=== PATIENT | female | born 1995 | race Caucasian/White ===

== ENCOUNTER 2017-06-28 10:27 | Emergency (ER) | payer OTHER ==
[2017-06-28 10:33] VITALS: BP 117/75; PULSE 90; TEMP 99; BMI 24.9
[2017-06-28] MEDS ORDERED: SODIUM CHLORIDE 0.9% 1000 ML INFUS.BAG IV ONE (10:55)
--- NOTE | 2017-06-28 11:05 | PDOC ---
History of Present Illness - General History Source: Patient Exam Limitations: No Limitations - History of Present Illness Initial Comments: 06/28/17 11:07 The patient is a 22 year old female, A0 who is currently 11 weeks with no significant past medical history who presents to the emergency department with dysfunctional vaginal bleeding and abdominal cramping. The patient reports having heavy bleeding starting today with associated lower abdominal cramping LMP 04/10/17. She denies recent fevers, chills, headache or dizziness. She denies recent nausea, vomit, diarrhea or constipation. She denies recent dysuria, frequency, urgency or hematuria. She denies recent chest pain or shortness of breath. Allergies: NKA Past surgical history: None reported. Social history: Nonsmoker. Denies EtOH use and recreational drug use. OBGYN: Dr. Vandana Gusman (Not on Staff) <Nathaniel Calixto - Last Filed: 06/28/17 11:07> - General History Source: Patient Exam Limitations: No Limitations <Zaina Reyes - Last Filed: 06/28/17 14:06> <Reny Perales - Last Filed: 06/28/17 14:37> - General Chief Complaint: Vaginal Bleeding Stated Complaint: BLEEDING (11 WKS ) Time Seen by Provider: 06/28/17 10:48 Past History <Nathaniel Calixto - Last Filed: 06/28/17 11:07> - Immunization History Immunization Up to Date: No - Psycho/Social/Smoking Cessation Hx Anxiety: No Suicidal Ideation: No Smoking Status: No Smoking History: Never smoked Have you smoked in the past 12 months: No Number of Cigarettes Smoked Daily: 0 Information on smoking cessation initiated: No Hx Alcohol Use: No Substance Use Type: None <Zaina Reyes - Last Filed: 06/28/17 14:06> <Reny Perales - Last Filed: 06/28/17 14:37> - Past Medical History Allergies/Adverse Reactions: Allergies Allergy/AdvReac Type Severity Reaction Status Date / Time No Known Allergies Allergy Verified 06/28/17 10:33 Home Medications: Ambulatory Orders Vits #93/Iron Fum/FA [ Formula Tablet] 1 each PO DAILY Review of Systems - Review of Systems Able to Perform ROS?: Yes Comments:: 06/28/17 11:07 GENERAL/CONSTITUTIONAL: No fever or chills. No weakness. HEAD, EYES, EARS, NOSE AND THROAT: No change in vision. No ear pain or discharge. No sore throat. CARDIOVASCULAR: No chest pain or shortness of breath. RESPIRATORY: No cough, wheezing, or hemoptysis. GASTROINTESTINAL: +abdominal cramping. No nausea, vomiting, diarrhea or constipation. GENITOURINARY: +dysfunctional vaginal bleeding. No dysuria, frequency, or change in urination. MUSCULOSKELETAL: No joint or muscle swelling or pain. No neck or back pain. SKIN: No rash NEUROLOGIC: No headache, vertigo, loss of consciousness, or change in strength/ sensation. ENDOCRINE: No increased thirst. No abnormal weight change. HEMATOLOGIC/LYMPHATIC: No anemia, easy bleeding, or history of blood clots. ALLERGIC/IMMUNOLOGIC: No hives or skin allergy. <Nathaniel Calixto - Last Filed: 06/28/17 11:07> *Physical Exam - Vital Signs Last Vital Signs Temp Pulse Resp BP Pulse Ox 99 F 90 18 117/75 100 06/28/17 10:30 06/28/17 10:30 06/28/17 10:30 06/28/17 10:30 06/28/17 10:30 <Nathaniel Calixto - Last Filed: 06/28/17 11:07> - Vital Signs Last Vital Signs Temp Pulse Resp BP Pulse Ox 99 F 90 18 117/75 100 06/28/17 10:30 06/28/17 10:30 06/28/17 10:30 06/28/17 10:30 06/28/17 10:30 <Zaina Reyes - Last Filed: 06/28/17 14:06> - Vital Signs Last Vital Signs Temp Pulse Resp BP Pulse Ox 99 F 90 18 117/75 100 06/28/17 10:30 06/28/17 10:30 06/28/17 10:30 06/28/17 10:30 06/28/17 10:30 - Physical Exam Comments: 06/28/17 12:16 PELVIC: External exam is normal. Small amount of bleeding from the cervical os. +Left adnexal tenderness. <Reny Perales - Last Filed: 06/28/17 14:37> ED Treatment Course - LABORATORY CBC & Chemistry Diagram: 06/28/17 11:25 06/28/17 11:25 - RADIOLOGY Radiology Studies Ordered: Category Date Time Status TRANSVAGINAL US PREG [US] Stat Ultrasound 06/28/17 10:54 Ordered <EricZaina - Last Filed: 06/28/17 14:06> - LABORATORY CBC & Chemistry Diagram: 06/28/17 11:25 06/28/17 11:25 - ADDITIONAL ORDERS Additional order review: Laboratory Results 06/28/17 06/28/17 11:45 10:55 Blood Type A POSITIVE A POSITIVE 06/28/17 11:25 RBC 5.07 MCV 68.2 L MCHC 31.9 L RDW 14.3 MPV 8.4 Neutrophils % 70.0 Lymphocytes % 23.4 D Monocytes % 5.9 Eosinophils % 0.2 D Basophils % 0.5 - RADIOLOGY Radiograph Interpretation: 06/28/17 14:33 Gestational US, read by Dr. Marcus Single intrauterine with estimated gestational age of 8 weeks 4 days. A small subchorionic hemorrhage is present. No heart activity was visualized or could be documented compatible with demise. Correlation with serial quantitative serum beta hCG and close follow up ultrasound are recommended. Both ovaries appear morphologically unremarkable. Duplex evaluation of the ovaries are not obtained. - Medications Given in the ED: ED Medications Discontinued Medications Generic Name Dose Route Start Last Admin Trade Name Freq PRN Reason Stop Dose Admin Sodium Chloride 1,000 ml 06/28/17 10:55 06/28/17 11:32 Normal Saline - IV 06/28/17 10:56 1,000 ml ONCE ONE Administration <Reny Perales - Last Filed: 06/28/17 14:37> Medical Decision Making - Medical Decision Making 06/28/17 11:03 22 yo F at 11 weeks LMp 04/10 with vaginal bleeding started 4 days ago. was. heavy bleeding bright red blood. with clots similar to period. crampy abd pain. no /ho ectopic or misscarriage. now slowing down. has had ob appt, but no us as of yet. on exam pt awake alert lungs cardiac normal. abd soft mild suprapubic ttp. no rebound no gurading differential threatened vs. missed or incomplete abl. plan labs us. iv hydration. 06/28/17 11:50 onpelvic, pt with scant blood in vaginal vault. some active blood coming from os. no CMT. left adnexal tenderness. no adnexal masses. <Zaina Reyes - Last Filed: 06/28/17 14:06> - Medical Decision Making 06/28/17 13:08 Call placed to patient's OBGYN, Dr. Sommer Gusman at [phone]. Awaiting callback. <Reny Perales - Last Filed: 06/28/17 14:37> *DC/Admit/Observation/Transfer - Attestations Scribe Attestion: 06/28/17 11:07 Documentation prepared by Nathaniel Calixto, acting as medical clerk for Zaina Reyes MD. <Nathaniel Calixto - Last Filed: 06/28/17 11:07> - Discharge Dispostion Admit: No <Zaina Reyes - Last Filed: 06/28/17 14:06> - Attestations Scribe Attestion: 06/28/17 12:17 Documentation prepared by Reny Perales, acting as medical clerk for Zaina Reyes MD. <Reny Perales - Last Filed: 06/28/17 14:37> Diagnosis at time of Disposition: Missed with demise before 20 completed weeks of gestation - Patient Instructions Additional Instructions: follow up with DR Gusman tomorrow at 8:45 am . return for severe pain, fever or any concerns. you can take tylenol 500 mg every 6 hours as needed for pain.
[2017-06-28 11:39] LABS: BASOPHIL 0.5 % (0-2.0); EOSINOPHIL 0.2 % (0-4.5); MCH 21.7 pg (25.7-33.7); MCHC 31.9 g/dl (32.0-36.0); MEAN CELL VOLUME 68.2 fl (80-96); MEAN PLT VOLUME 8.4 fl (7.5-11.1); PLATELET COUNT 218 K/MM3 (134-434); RDW 14.3 % (11.6-15.6); WHITE BLOOD COUNT 7.3 K/mm3 (4.0-10.0)
[2017-06-28 12:10] LABS: ALBUMIN 3.9 g/dl (3.4-5.0); ANION GAP 9 (8-16); BILIRUBIN,TOTAL 0.2 mg/dL (0.2-1.0); CALCIUM 9.2 mg/dL (8.5-10.1); CO2 25 mmol/L (21-32); CREATININE 0.4 mg/dL (0.55-1.02); GLUCOSE,RANDOM 78 mg/dL (74-106); SGOT/AST 17 U/L (15-37); SGPT/ALT 23 U/L (12-78); TOT PROT 7.1 g/dl (6.4-8.2)
[2017-06-28 12:25] LABS: ALK PHOS 50 U/L (45-117)
[2017-06-28 13:17] LABS: HYPOCHROMIA 1+; PLATELET COMMENT2 NO CLOTTING DETECTED; PLATELET ESTIMATE ADEQUATE (NORMAL); POLYCHROMASIA 1+
[2017-06-28 13:18] LABS: ANISOCYTOSIS 1+; MICROCYTOSIS 1+
== END 2017-06-28 15:20 | disposition home or self-care (01) ==
LOC: JER 10:27
DX: O02.1 Missed abortion (principal); Z3A.11 11 weeks gestation of pregnancy
CPT/HCPCS: 36415; 76801-TC; 80053; 84702; 85025; 86850; 86900; 86901; 99284-25

== ENCOUNTER 2017-06-29 03:47 | Emergency (ER) | payer OTHER | END 2017-06-29 04:07 | disposition left against medical advice (07) | LOC: JER 03:47 | DX: Z53.21 Procedure and treatment not carried out due to patient leaving prior to being seen by health care provider (principal) | CPT/HCPCS: 99281-25 ==

== ENCOUNTER 2017-10-19 23:25 | Emergency (ER) | payer OTHER ==
[2017-10-19 23:51] VITALS: BP 110/76; PULSE 114; TEMP 100.9; BMI 24.3
--- NOTE | 2017-10-20 00:04 | PDOC ---
History of Present Illness - General Chief Complaint: Cold Symptoms Stated Complaint: FEVER Time Seen by Provider: 10/19/17 23:50 History Source: Patient Exam Limitations: No Limitations - History of Present Illness Initial Comments: 10/20/17 00:08 22-year-old female with no medical history presents to the emergency department complaining of a sore throat, subjective fever, body aches since this afternoon without chills, nausea/vomiting, headache, dizziness, lightheadedness, facial pains, nasal congestion, rhinorrhea, neck pain/stiffness, back pains, chest pain , shortness of breath, abdominal pains, flank pains, urinary symptoms. LMP: x1 week ago. Timing/Duration: reports: this afternoon Past History - Past Medical History Allergies/Adverse Reactions: Allergies Allergy/AdvReac Type Severity Reaction Status Date / Time No Known Allergies Allergy Verified 10/19/17 23:51 Home Medications: Ambulatory Orders Vit 93/Iron Fum/Folic [ Formula Tablet] 1 each PO DAILY - Reproductive History (#): 1 Para: 0 - Immunization History Immunization Up to Date: No - Suicide/Smoking/Psychosocial Hx Smoking Status: No Smoking History: Never smoked Have you smoked in the past 12 months: No Number of Cigarettes Smoked Daily: 0 Information on smoking cessation initiated: No Hx Alcohol Use: No Drug/Substance Use Hx: No Substance Use Type: None Review of Systems - Review of Systems Able to Perform ROS?: Yes Comments:: 10/20/17 00:10 CONSTITUTIONAL: +subjective fever, malaise Absent: chills, diaphoresis, generalized weakness, loss of appetite HEENT: +throat pain Absent: rhinorrhea, nasal congestion, throat swelling, difficulty swallowing, mouth swelling, ear pain, eye pain, visual Changes CARDIOVASCULAR: Absent: chest pain, loss of consciousness, palpitations, irregular heart rate, peripheral edema RESPIRATORY: Absent: cough, shortness of breath, dyspnea with exertion, orthopnea, wheezing, stridor, hemoptysis GASTROINTESTINAL: Absent: abdominal pain, abdominal distension, nausea, vomiting, diarrhea, constipation, melena, hematochezia GENITOURINARY: Absent: dysuria, frequency, urgency, hesitancy, hematuria, flank pain, genital pain MUSCULOSKELETAL: Absent: myalgia, arthralgia, joint swelling SKIN: Absent: rash, itching, pallor HEMATOLOGIC/IMMUNOLOGIC: Absent: easy bleeding, easy bruising, lymphadenopathy, frequent infections Is the patient limited [place]an proficient: No *Physical Exam - Vital Signs Last Vital Signs Temp Pulse Resp BP Pulse Ox 100.9 F H 114 H 20 110/76 99 10/19/17 23:50 10/19/17 23:50 10/19/17 23:50 10/19/17 23:50 10/19/17 23:50 - Physical Exam Comments: 10/20/17 00:10 GENERAL: Well developed, well nourished. Awake and alert. No acute distress. HEENT: Normocephalic, atraumatic. PERRLA, EOMI. No conjunctival pallor. Sclera are non- icteric. Moist mucous membranes. Oropharynx is clear. NECK: Supple. Full ROM. No JVD. Carotid pulses 2+ and symmetric, without bruits. No thyromegaly. No lymphadenopathy. CARDIOVASCULAR: Regular rate and rhythm. No murmurs, rubs, or gallops. Distal pulses are 2+ and symmetric. PULMONARY: No evidence of respiratory distress. Lungs clear to auscultation bilaterally. No wheezing, rales or rhonchi. ABDOMINAL: Soft. Non-tender. Non-distended. No rebound or guarding. No organomegaly. Normoactive bowel sounds. MUSCULOSKELETAL Normal range of motion at all joints. No bony deformities or tenderness. No CVA tenderness. EXTREMITIES: No cyanosis. No clubbing. No edema. No calf tenderness. SKIN: Warm and dry. Normal capillary refill. No rashes. No jaundice. *DC/Admit/Observation/Transfer Diagnosis at time of Disposition: Strep sore throat - Discharge Dispostion Disposition: HOME Condition at time of disposition: Stable Admit: No - Referrals Referrals: Celio Mckeon MD [Staff Physician] - - Patient Instructions Printed Discharge Instructions: DI for Strep Throat Additional Instructions: Rinse with salt water Tylenol alternating with Motrin as needed for pain/fever Follow up with your physician or the ENT listed on your discharge/Dr. Mckeon Return to the ER severe/persistent/worsening symptoms - Post Discharge Activity
--- NOTE | 2017-10-20 01:00 | PDOC ---
*Physical Exam - Vital Signs Last Vital Signs Temp Pulse Resp BP Pulse Ox 100.9 F H 114 H 20 110/76 99 10/19/17 23:50 10/19/17 23:50 10/19/17 23:50 10/19/17 23:50 10/19/17 23:50 ED Treatment Course - ADDITIONAL ORDERS Additional order review: 10/20/17 00:04 Influenza Types A,B Antigen (AFTAB) - Final Nasopharyngeal Swab - Final 10/20/17 00:04 Group A Strep Rapid Antigen - Final Throat Medical Decision Making - Medical Decision Making 10/20/17 00:59 agree with care from QAMAR Bates
[2017-10-20] MEDS ORDERED: AMOXICILLIN 500 MG CAPSULE (FP) PO ONE (01:03)
[2017-10-20] MEDS ORDERED: AMOXICILLIN 500 MG CAPSULE (FP) ONE (01:14)
--- NOTE | 2017-10-20 09:38 | PDOC ---
Patient Follow-up (Call Back) - Post ED Follow - Up Condition at time of discharge: Unchanged/Unknown Disposition at time of original discharge: HOME Reason for Call Back: Abnwl. Lab - Disposition Rx Needed: Yes Additional Instructions/Notes: Pt with + strep culture from last night. No antibiotics prescribed at that time. Will sent zpack now. Attempted to contact pt however went to voicemail and message left to call back.
== END 2017-10-20 02:05 | disposition home or self-care (01) ==
LOC: JER 23:25
DX: J02.0 Streptococcal pharyngitis (principal); B95.0 Streptococcus, group A, as the cause of diseases classified elsewhere
CPT/HCPCS: 87070; 87077; 87430; 87804; 99282-25

== ENCOUNTER 2019-07-13 20:26 | Emergency (ER) | payer OTHER ==
[2019-07-13 20:32] VITALS: BP 142/82; PULSE 93; BMI 29.5
[2019-07-13 22:14] VITALS: TEMP 98.3
[2019-07-13] MEDS ORDERED: ACETAMINOPHEN 500 MG TABLET (FP) PO ONE (22:20)
[2019-07-13] MEDS ORDERED: ACETAMINOPHEN 325 MG TABLET (FP) ONE (22:27)
--- NOTE | 2019-07-13 22:36 | PDOC ---
History of Present Illness - General Chief Complaint: Cold Symptoms Stated Complaint: COLD SYX/38 WEEKS Time Seen by Provider: 07/13/19 22:03 History Source: Patient Exam Limitations: No Limitations - History of Present Illness Initial Comments: 07/13/19 22:30 Patient is a 24 year old female who is 38 weeks c/o MEHTA, dizziness vertigo, nasal congestion, cough and intermittent fevers 4 days. States her pain is mostly on the left temporal now 8/10, throbbing associated with intermittent vertigo symptoms. No prior episode. States she feels the baby kicking. Denies vaginal bleeding or leakage of fluid. PMD: Woman to Woman PMHX: as above PSOCHX: neg etoh, drug, cig ALL: NKDA GENERAL/CONSTITUTIONAL: No fever or chills. No weakness. No weight change. HEAD, EYES, EARS, NOSE AND THROAT: No change in vision. No ear pain or discharge. No sore throat. CARDIOVASCULAR: No chest pain or shortness of breath. RESPIRATORY: (+) cough, (-)wheezing, or hemoptysis. GASTROINTESTINAL: No nausea, vomiting, diarrhea or constipation. No rectal bleeding. GENITOURINARY: No dysuria, frequency, or change in urination. MUSCULOSKELETAL: No joint or muscle swelling or pain. No neck or back pain. SKIN AND BREASTS: No rash or easy bruising. NEUROLOGIC: (+) headache, vertigo, (-) loss of consciousness, or loss of sensation. PSYCHIATRIC: No depression or anxiety. ENDOCRINE: No increased thirst. No abnormal weight change. HEMATOLOGIC/LYMPHATIC: No anemia, easy bleeding, or history of blood clots. ALLERGIC/IMMUNOLOGIC: No hives or skin allergy. No latex allergy. GENERAL: The patient is awake, alert, and fully oriented, in no acute distress. HEAD: Normal with no signs of trauma. EYES: Pupils equal, round and reactive to light, extraocular movements intact, sclera anicteric, conjunctiva clear. ENT: Ears normal, nares patent, oropharynx clear without exudates. Moist mucous membranes, (+) tenderness over the frontal and maxillary sinus. NECK: Normal range of motion, supple without lymphadenopathy, JVD, or masses. LUNGS: Breath sounds equal, clear to auscultation bilaterally. No wheezes, and no crackles. HEART: Regular rate and rhythm, normal S1 and S2 without murmur, rub. ABDOMEN: Soft, gravid, nontender, normoactive bowel sounds. No guarding, no rebound. No masses. EXTREMITIES: Normal range of motion, no edema. No clubbing or cyanosis. No cords, erythema, or tenderness. NEUROLOGICAL: Cranial nerves II through XII grossly intact. Normal speech, normal gait, nystagmus PSYCH: Normal mood, normal affect. SKIN: Warm, Dry, normal turgor, no rashes or lesions noted. Past History - Past Medical History Allergies/Adverse Reactions: Allergies Allergy/AdvReac Type Severity Reaction Status Date / Time No Known Allergies Allergy Verified 07/13/19 20:29 Home Medications: Ambulatory Orders Azithromycin [Zithromax -] 250 mg PO UTDICT #6 tab 10/20/17 Acetaminophen [Tylenol] 650 mg PO Q4HWA #130 tablet 07/13/19 Fluticasone Prop 0.05% Nasal [Flonase -] 1 - 2 spray NS BID #1 spray.pump Loratadine [Claritin] 10 mg PO DAILY #15 tablet 07/13/19 COPD: No - Reproductive History (#): 1 Para: 0 - Immunization History Immunization Up to Date: No - Suicide/Smoking/Psychosocial Hx Smoking Status: No Smoking History: Never smoked Have you smoked in the past 12 months: No Number of Cigarettes Smoked Daily: 0 Hx Alcohol Use: No Drug/Substance Use Hx: No Substance Use Type: None *Physical Exam - Vital Signs Last Vital Signs Temp Pulse Resp BP Pulse Ox 98.3 F 93 H 18 142/82 98 07/13/19 22:13 07/13/19 20:30 07/13/19 20:30 07/13/19 20:30 07/13/19 20:30 ED Treatment Course - Medications Given in the ED: ED Medications Discontinued Medications Generic Name Dose Route Start Last Admin Trade Name Freq PRN Reason Stop Dose Admin Acetaminophen 975 mg 07/13/19 22:20 07/13/19 22:29 Tylenol - PO 07/13/19 22:21 975 mg ONCE ONE Administration Medical Decision Making - Medical Decision Making 07/13/19 22:30 Patient is a 24 year old female who is 38 weeks c/o MEHTA, dizziness vertigo, nasal congestion, cough and intermittent fevers 4 days. States her pain is mostly on the left temporal now 8/10, throbbing associated with intermittent vertigo symptoms. No prior episode. States she feels the baby kicking. Denies vaginal bleeding or leakage of fluid. Symptoms consistent with sinusitis/sinus headache will treat symptomatically with nasal spray Tylenol and Claritin. No indication for antibiotics at this time. Temperature repeated in the ER patient remains afebrile. I discussed the physical exam findings, ancillary test results and final diagnoses with the patient. I answered all of the patient's questions. The patient was satisfied with the care received and felt comfortable with the discharge plan and treatment plan. The Patient agrees to follow up with the primary care physician within 24-72 hours. *DC/Admit/Observation/Transfer Diagnosis at time of Disposition: Sinusitis Qualifiers: Sinusitis location: unspecified location Chronicity: acute Recurrence: not specified as recurrent Qualified Code(s): J01.90 - Acute sinusitis, unspecified - Discharge Dispostion Disposition: HOME Condition at time of disposition: Stable - Prescriptions Prescriptions: Acetaminophen [Tylenol] 650 mg PO Q4HWA #130 tablet Fluticasone Prop 0.05% Nasal [Flonase -] 1 - 2 spray NS BID #1 spray.pump Loratadine [Claritin] 10 mg PO DAILY #15 tablet - Referrals - Patient Instructions Printed Discharge Instructions: DI for Sinusitis - Post Discharge Activity
== END 2019-07-13 22:48 | disposition home or self-care (01) ==
LOC: JERFT 20:26
DX: O99.89 Other specified diseases and conditions complicating pregnancy, childbirth and the puerperium (principal); J01.90 Acute sinusitis, unspecified; Z3A.38 38 weeks gestation of pregnancy
CPT/HCPCS: 99282-25

== ENCOUNTER 2019-07-23 11:00 | Inpatient (IN) | payer OTHER ==
[2019-07-23] MEDS ORDERED: LACTATED RINGERS SOLUTION 1,000 ML IV SCH (12:15)
[2019-07-23 12:52] VITALS: BMI 28.9
[2019-07-23 13:51] LABS: BASO % 0.2 % (0-2.0); EOS % 0.1 % (0-4.5); HEMATOCRIT 34.6 % (32.4-45.2); HEMOGLOBIN 11.2 GM/dL (10.7-15.3); LYMPH % 15.8 % (8-40); MCH 22.6 pg (25.7-33.7); MCHC 32.4 g/dl (32.0-36.0); MEAN CELL VOLUME 69.7 fl (80-96); MONO % 5.2 % (3.8-10.2); NEUT % 78.7 % (42.8-82.8); PLATELET COUNT 195 K/MM3 (134-434); RBC 4.97 M/mm3 (3.60-5.2); RDW 15.8 % (11.6-15.6); RETICULOCYTES 1.86 % (0.5-1.5); WHITE BLOOD COUNT 9.6 K/mm3 (4.0-10.0)
[2019-07-23] MEDS ORDERED: BUTORPHANOL TARTRATE 1 MG/ML VIAL IVPB ONE (13:52)
[2019-07-23] MEDS ORDERED: PROMETHAZINE HCL 25 MG/1 ML VIAL IVPB ONE (13:52)
--- NOTE | 2019-07-23 13:52 | HP ---
Past Medical History - Primary Care Physician PCP:: Dali Mclaughlin - Admission Chief Complaint: Induction History of Present Illness: 24 yo EDC 07/23/19 EGA 40 weeks with gestational HTN advised admission for induction No ROM No bleeding No MEHTA History Source: Patient - Past Medical History ...: 2 ...Para: 0 ...Term: 0 ...: 0 ...Spon : 0 ...Induced : 0 ...Multiple Gestation: 0 ...LMP: 10/16/18 ... Weeks Gestation by Dates: 39.6 ...EDC by Dates: 07/24/19 ...EDC by Sono: 07/23/19 - Past Surgical History Past Surgical History: Yes: None Hx Myomectomy: No Hx Transabdominal Cerclage: No - Smoking History Smoking history: Never smoked Have you smoked in the past 12 months: No Aproximately how many cigarettes per day: 0 - Alcohol/Substance Use Hx Alcohol Use: No History of Substance Use: reports: None - Social History History of Recent Travel: No Home Medications - Allergies Allergies/Adverse Reactions: Allergies Allergy/AdvReac Type Severity Reaction Status Date / Time No Known Allergies Allergy Verified 07/23/19 11:46 - Home Medications Home Medications: Ambulatory Orders Vit No.129/Iron/Folic [ One Daily Tablet] 1 tab PO DAILY Ferrous Sulfate [Feosol] 325 mg PO TID 07/23/19 Physical Exam - Maternity Vital Signs: Vital Signs Temperature 98.3 F 07/23/19 13:00 Pulse Rate 92 H 07/23/19 13:00 Respiratory Rate 18 07/23/19 13:00 Blood Pressure 128/74 07/23/19 13:00 O2 Sat by Pulse Oximetry (%) Constitutional: Yes: Well Nourished, No Distress Neck: Yes: WNL Breast(s): Yes: WNL - Abdominal Exam/OB Fundal Height: 40 Number of Fetuses: Single Presentation: Vertex Contractions: Yes Regularity: Irritability Intensity: Moderate Category: I - Vaginal Exam/OB Dilatation (cm): 1-2 Effacement (%): 70 Amniotic Membrane Status: Intact Presentation: Vertex/Position - Physical Exam Musculoskeletal: Yes: WNL Extremities: Yes: WNL Edema: No Hemorrhage Risk Assessment - Risk Factors Risk Score: 0 Risk Level: Low Risk Problem List - Problems (1) Gestational hypertension Code(s): O13.9 - GESTATIONAL HTN W/O SIGNIFICANT PROTEINURIA, UNSP TRIMESTER Qualifiers: Trimester: third trimester Qualified Code(s): O13.3 - Gestational [ -induced] hypertension without significant proteinuria, third trimester Assessment/Plan IUP at 40 weeks Cat 1 gestational Hypertension Plan Cervidil
[2019-07-23] MEDS ORDERED: DINOPROSTONE 10 MG VAGINAL SUPPOSITORY VG ONE (13:53)
[2019-07-23] MEDS ORDERED: ELECTROLYTE-148 SOLN 1,000 ML IV SCH (14:00)
[2019-07-23 14:14] LABS: INR 0.92 (0.83-1.09); PROTHROMBIN TIME (PATIENT) 10.8 SEC (9.7-13.0)
[2019-07-23 14:16] LABS: BLOOD UREA NITROGEN 4.6 mg/dL (7-18); CREATININE 0.5 mg/dL (0.55-1.3); POTASSIUM 3.7 mmol/L (3.5-5.1)
[2019-07-23 14:17] LABS: ACTIVATED PTT 28.6 SECONDS (25.2-36.5); URIC ACID 4.8 mg/dL (2.6-7.2)
[2019-07-23 15:22] LABS: EPI CELLS 1.3 /HPF (0-5/HPF); HYALINE CASTS 2 /lpf (0-8); URINE APPEARANCE CLEAR; URINE BACTERIA 37.9 /hpf (NEGATIVE); URINE BILIRUBIN NEGATIVE (NEGATIVE); URINE COLOR YELLOW; URINE GLUCOSE (UA) NEGATIVE (NEGATIVE); URINE KETONE TRACE (NEGATIVE); URINE LEUK ESTERASE 1+ (NEGATIVE); URINE NITRITE NEGATIVE (NEGATIVE); URINE PROTEIN NEGATIVE (NEGATIVE); URINE RBC 3 /hpf (0-4); URINE UROBILINOGEN 0.2 mg/dL (0.2-1.0); URINE WBC 2 /hpf (0-5)
[2019-07-23] MEDS ORDERED: BUTORPHANOL TARTRATE 1 MG/ML VIAL ONE ×2 (15:22)
[2019-07-23] MEDS ORDERED: PROMETHAZINE HCL 25 MG/1 ML VIAL ONE (15:22)
[2019-07-23] MEDS ORDERED: LIDO 2%/EPI 1:200000 PRESRVFRE (20 ML SDVIAL) ONE (19:26)
[2019-07-23] MEDS ORDERED: BUPIVACAINE HCL/PF 2.5 MG/ML - 30 ML VIAL IJ ONE (19:26)
[2019-07-23] MEDS ORDERED: FENTANYL/BUPIVACAINE/NS/PF - PCEA - 50 ML DISP.SYRIN EP ONE (19:51)
--- NOTE | 2019-07-23 19:54 | PN ---
Ante-Partal Exam - Subjective Vital Signs: Vital Signs Temperature 97.5 F L 07/23/19 18:00 Pulse Rate 93 H 07/23/19 18:00 Respiratory Rate 18 07/23/19 18:00 Blood Pressure 141/73 07/23/19 18:00 O2 Sat by Pulse Oximetry (%) Bleeding: No Headache: No Visual changes: No Right upper quadrant pain: No - Contractions Contractions: Yes Regularity: Regular Intensity: Moderate Monitor Mode: External - Exam during Labor Variability: Moderate Category: I Monitor Decelerations: Early Exam: Vaginal Dilatation (cm): 4 Effacement (%): 90 Amniotic Membrane Status: Intact Station: -1 - Intrapartum Hemorrhage Risk Risk Score: 0 Risk Level: Low Risk - Assessment/Plan Assessment/Plan: iup at 40 weeek activ e labvor plan epidural
[2019-07-23] MEDS ORDERED: NALOXONE HCL 0.4 MG/ML VIAL IVPUSH PRN (20:04)
[2019-07-23] MEDS ORDERED: FENTANYL/BUPIVACAINE/NS/PF - PCEA - 50 ML DISP.SYRIN EP SCH (20:15)
--- NOTE | 2019-07-23 21:10 | PN ---
Ante-Partal Exam - Subjective Subjective: Pt comfortable with epidural Vital Signs: Vital Signs Temperature 97.5 F L 07/23/19 18:00 Pulse Rate 93 H 07/23/19 18:00 Respiratory Rate 18 07/23/19 18:00 Blood Pressure 141/73 07/23/19 18:00 O2 Sat by Pulse Oximetry (%) Bleeding: No Headache: No Visual changes: No Right upper quadrant pain: No - Contractions Contractions: Yes Regularity: Regular Monitor Mode: External - Exam during Labor Variability: Moderate Category: I Monitor Accelerations: Present Exam: Vaginal Dilatation (cm): 9 cm Effacement (%): 100 Amniotic Membrane Status: Ruptured Amniotic Fluid: Meconium Stained Presentation: Vertex - Intrapartum Hemorrhage Risk Risk Score: 0 Risk Level: Low Risk - Assessment/Plan Assessment/Plan: IUP at 40 weeks CAt 1 Active labor stable after epidural Plan Anticipate vaginal delivery
[2019-07-23] MEDS ORDERED: OXYTOCIN 20 UNITS in 0.9% NS 40 UNIT/2,000 ML INFUS.BAG IV ONE (22:46)
[2019-07-23] MEDS ORDERED: LIDOCAINE HCL 1% PRESERVATIVE FREE - 30ML VIAL ONE (22:46)
--- NOTE | 2019-07-24 00:07 | PN ---
Delivery - Delivery Vaginal Delivery: No Problems (Delivered with [facility] Nuchal cord x 1) Type of Anesthesia: Epidural Episiotomy/Laceration: None EBL (cc): 350 Delivery, Single - Stages of Labor Placenta: Yes: Spontaneous - Condition of Infant Gender: Female Position: OA - Feeding Plan Initial Plan: Elected not to breastfeed exclusively throughout hospitalization
[2019-07-24] MEDS ORDERED: CEFAZOLIN 2 GM/D5W 2 GM/50 ML ML IVPB ONE (00:34)
[2019-07-24] MEDS ORDERED: ceFAZolin 2 GRAM PREMIX BAG IVPB ONE (01:15)
--- NOTE | 2019-07-24 01:24 | PN ---
Progress Note (short form) - Note Progress Note: Pt with c/o of dizziness T&C match done CBC done Vital Signs Period Temp Pulse Resp BP Sys/Valdes Pulse Ox Last 24 Hr 97.5 F-99.2 F 87-113 18-20 89-144/52-90 94-100 SP will treat with Ancef Problem List - Problems (1) Gestational hypertension Code(s): O13.9 - GESTATIONAL HTN W/O SIGNIFICANT PROTEINURIA, UNSP TRIMESTER Qualifiers: Trimester: third trimester Qualified Code(s): O13.3 - Gestational [ -induced] hypertension without significant proteinuria, third trimester (2) Dizziness Code(s): R42 - DIZZINESS AND GIDDINESS
[2019-07-24 01:44] LABS: HEMATOCRIT 27.7 % (32.4-45.2); HEMOGLOBIN 8.7 GM/dL (10.7-15.3); LYMPH % 5.4 % (8-40); MCHC 31.6 g/dl (32.0-36.0); MEAN CELL VOLUME 69.8 fl (80-96); MEAN PLT VOLUME 8.5 fl (7.5-11.1); MONO % 4.9 % (3.8-10.2); NEUT % 89.7 % (42.8-82.8); PLATELET COUNT 180 K/MM3 (134-434); RBC 3.96 M/mm3 (3.60-5.2); RDW 15.2 % (11.6-15.6); WHITE BLOOD COUNT 16.1 K/mm3 (4.0-10.0)
[2019-07-24] MEDS ORDERED: WITCH HAZEL 50% (TUCKS) 40 PAD/JAR PAD TP PRN (02:08)
[2019-07-24] MEDS ORDERED: ACETAMINOPHEN 325 MG TABLET (FP) PO PRN (02:08)
[2019-07-24] MEDS ORDERED: IBUPROFEN 600 MG TABLET (FP) PO PRN (02:08)
[2019-07-24] MEDS ORDERED: METHYLERGONOVINE MALEATE 0.2 MG/1 ML AMP IM PRN (02:08)
[2019-07-24] MEDS ORDERED: BENZOCAINE 28 GM HEMORRHOIDAL OINTMENT TP PRN (02:08)
[2019-07-24] MEDS ORDERED: BENZOCAINE 20% 57 GM BOTTLE TP PRN (02:08)
[2019-07-24] MEDS ORDERED: BISACODYL 10 MG SUPP.RECT RC PRN (02:08)
[2019-07-24] MEDS ORDERED: OXYTOCIN 20 UNITS in 0.9% NS 20 UNIT/1,000 ML INFUS.BAG IV SCH (02:15)
[2019-07-24] MEDS ORDERED: ACETAMINOPHEN 325 MG TABLET (FP) ONE (02:39)
[2019-07-24] MEDS ORDERED: IBUPROFEN 600 MG TABLET (FP) PO ONE (02:40)
--- NOTE | 2019-07-24 06:43 | PN ---
Post Note - Post Date of Delivery: 07/23/19 Post Day: 1 Vital Signs: Vital Signs - 24 hr 07/23/19 07/23/19 07/23/19 11:30 12:15 13:00 Temperature 99.2 F 98.2 F 98.3 F Pulse Rate 94 H 92 H Pulse Rate [ 87 Left Brachial] Respiratory 18 18 18 Rate Blood Pressure 144/90 128/74 Blood Pressure 130/72 [Left Upper Arm ] O2 Sat by Pulse Oximetry (%) 07/23/19 07/23/19 07/23/19 15:00 16:00 17:00 Temperature 98.2 F 98.6 F Pulse Rate 113 H 94 H Pulse Rate [ Left Brachial] Respiratory 18 18 Rate Blood Pressure 138/77 132/73 Blood Pressure [Left Upper Arm ] O2 Sat by Pulse Oximetry (%) 07/23/19 07/23/19 07/23/19 18:00 20:15 20:20 Temperature 97.5 F L Pulse Rate 93 H 105 H 105 H Pulse Rate [ Left Brachial] Respiratory 18 20 20 Rate Blood Pressure 141/73 89/52 L 89/52 L Blood Pressure [Left Upper Arm ] O2 Sat by Pulse 94 L 100 Oximetry (%) 07/23/19 07/23/19 07/24/19 20:25 20:30 00:05 Temperature Pulse Rate 94 H 89 157 H Pulse Rate [ Left Brachial] Respiratory 20 20 20 Rate Blood Pressure 96/57 L 93/52 L 100/64 Blood Pressure [Left Upper Arm ] O2 Sat by Pulse 100 100 98 Oximetry (%) 07/24/19 07/24/19 07/24/19 00:15 00:30 00:45 Temperature 99.7 F H Pulse Rate 152 H 163 H 142 H Pulse Rate [ Left Brachial] Respiratory 20 20 20 Rate Blood Pressure 113/76 108/65 110/65 Blood Pressure [Left Upper Arm ] O2 Sat by Pulse 100 100 100 Oximetry (%) 07/24/19 07/24/19 07/24/19 01:00 02:00 02:15 Temperature 100.1 F H 99.4 F 98.2 F Pulse Rate 143 H 125 H 115 H Pulse Rate [ Left Brachial] Respiratory 20 20 20 Rate Blood Pressure 112/65 122/67 119/63 Blood Pressure [Left Upper Arm ] O2 Sat by Pulse 98 Oximetry (%) 07/24/19 07/24/19 03:00 06:00 Temperature 98.8 F 98.4 F Pulse Rate 110 H 109 H Pulse Rate [ Left Brachial] Respiratory 18 18 Rate Blood Pressure 126/75 113/63 Blood Pressure [Left Upper Arm ] O2 Sat by Pulse Oximetry (%) Labs: Laboratory Results - last 24 hr 07/23/19 07/23/19 07/23/19 13:35 13:35 13:35 WBC RBC Hgb Hct MCV MCH MCHC RDW Plt Count 193 MPV Absolute Neuts (auto) Neutrophils % Lymphocytes % Monocytes % Eosinophils % Basophils % Nucleated RBC % Retic Count 1.86 H Haptoglobin 149 PT with INR INR PTT (Actin FS) Cord Blood pH Cord Blood PCO2 Cord Blood PO2 Cord Blood HCO3 Cord Base Excess Sodium Potassium Chloride Carbon Dioxide Anion Gap BUN Creatinine Est GFR (CKD-EPI)AfAm Est GFR (CKD-EPI)NonAf Random Glucose Uric Acid 4.8 Calcium GGT 19 AST 24 ALT 27 Urine Color Urine Appearance Urine pH Ur Specific [place] Urine Protein Urine Glucose (UA) Urine Ketones Urine Blood Urine Nitrite Urine Bilirubin Urine Urobilinogen Ur Leukocyte Esterase Urine WBC (Auto) Urine RBC (Auto) Urine Casts (Auto) U Epithel Cells (Auto) Urine Bacteria (Auto) RPR Titer Blood Type Antibody Screen 07/23/19 07/23/19 07/23/19 13:35 13:35 13:35 WBC 9.6 RBC 4.97 Hgb 11.2 Hct 34.6 MCV 69.7 L MCH 22.6 L MCHC 32.4 RDW 15.8 H D Plt Count 195 MPV 8.0 Absolute Neuts (auto) 7.6 Neutrophils % 78.7 Lymphocytes % 15.8 D Monocytes % 5.2 Eosinophils % 0.1 Basophils % 0.2 Nucleated RBC % 0 Retic Count Haptoglobin PT with INR 10.80 INR 0.92 PTT (Actin FS) 28.6 Cord Blood pH Cord Blood PCO2 Cord Blood PO2 Cord Blood HCO3 Cord Base Excess Sodium 138 Potassium 3.7 Chloride 106 Carbon Dioxide 22 Anion Gap 10 BUN 4.6 L Creatinine 0.5 L Est GFR (CKD-EPI)AfAm 159.23 Est GFR (CKD-EPI)NonAf 137.38 Random Glucose 67 L Uric Acid Calcium 9.0 GGT AST ALT Urine Color Urine Appearance Urine pH Ur Specific [place] Urine Protein Urine Glucose (UA) Urine Ketones Urine Blood Urine Nitrite Urine Bilirubin Urine Urobilinogen Ur Leukocyte Esterase Urine WBC (Auto) Urine RBC (Auto) Urine Casts (Auto) U Epithel Cells (Auto) Urine Bacteria (Auto) RPR Titer Blood Type Antibody Screen 07/23/19 07/23/19 07/23/19 13:35 13:35 14:55 WBC RBC Hgb Hct MCV MCH MCHC RDW Plt Count MPV Absolute Neuts (auto) Neutrophils % Lymphocytes % Monocytes % Eosinophils % Basophils % Nucleated RBC % Retic Count Haptoglobin PT with INR INR PTT (Actin FS) Cord Blood pH Cord Blood PCO2 Cord Blood PO2 Cord Blood HCO3 Cord Base Excess Sodium Potassium Chloride Carbon Dioxide Anion Gap BUN Creatinine Est GFR (CKD-EPI)AfAm Est GFR (CKD-EPI)NonAf Random Glucose Uric Acid Calcium GGT AST ALT Urine Color Yellow Urine Appearance Clear Urine pH 7.0 D Ur Specific [place] 1.005 L Urine Protein Negative Urine Glucose (UA) Negative Urine Ketones Trace H Urine Blood Negative Urine Nitrite Negative Urine Bilirubin Negative Urine Urobilinogen 0.2 Ur Leukocyte Esterase 1+ H Urine WBC (Auto) 2 Urine RBC (Auto) 3 Urine Casts (Auto) 2 U Epithel Cells (Auto) 1.3 Urine Bacteria (Auto) 37.9 RPR Titer Nonreactive Blood Type A POSITIVE Antibody Screen Negative 07/24/19 07/24/19 07/24/19 00:00 00:00 01:10 WBC 16.1 H RBC 3.96 Hgb 8.7 L Hct 27.7 L D MCV 69.8 L MCH 22.0 L MCHC 31.6 L RDW 15.2 Plt Count 180 MPV 8.5 Absolute Neuts (auto) 14.5 H Neutrophils % 89.7 H Lymphocytes % 5.4 L D Monocytes % 4.9 Eosinophils % 0.0 D Basophils % 0.0 Nucleated RBC % 0 Retic Count Haptoglobin PT with INR INR PTT (Actin FS) Cord Blood pH 7.35 7.15 Cord Blood PCO2 38.0 75.4 Cord Blood PO2 < 49 H < 49 H Cord Blood HCO3 20.5 25.0 Cord Base Excess -4.1 L -6.2 L Sodium Potassium Chloride Carbon Dioxide Anion Gap BUN Creatinine Est GFR (CKD-EPI)AfAm Est GFR (CKD-EPI)NonAf Random Glucose Uric Acid Calcium GGT AST ALT Urine Color Urine Appearance Urine pH Ur Specific [place] Urine Protein Urine Glucose (UA) Urine Ketones Urine Blood Urine Nitrite Urine Bilirubin Urine Urobilinogen Ur Leukocyte Esterase Urine WBC (Auto) Urine RBC (Auto) Urine Casts (Auto) U Epithel Cells (Auto) Urine Bacteria (Auto) RPR Titer Blood Type Antibody Screen - Subjective Subjective: No Complaints - Objective Afebrile: Yes Breast: Not engorged Abdomen: Soft, Non-tender Uterus: Fundus firm Vagina: Scant lochia Extremities: Non-tender - Assessment/Plan (1) Gestational hypertension Assessment: S/P Normal Plan: Routine Care
--- NOTE | 2019-07-24 10:17 | PN ---
Progress Note (short form) - Note Progress Note: Anesthesiologist note, S/P labor in Epidural. POD#1 Pat had a wet tap, yesterday . Today after ambulating c/o headache and nausea. No blurred vision. Pat seen and examined. Lying in the bed. No neck stiffness. Neurologically grossly intact. VSS, A/P: PDPH, neurologically intact. Offered blood patch vs conservative therapy with fluids and caffeine. Pat was informed about risks and benefits of offered options. Patient will try conservative therapy for now. will follow up.
[2019-07-24 10:32] LABS: ANISOCYTOSIS 2+; MACROCYTOSIS 0; PLATELET ESTIMATE NORMAL
[2019-07-24] MEDS: CEFAZOLIN 1 GM/D5W 1 GM/50 ML BAG IVPB SCH ×2 (10:32→17:36)
[2019-07-24] MEDS: ACETAMINOPHEN/CAFFEINE/BUTALBITAL 1 TAB PO PRN ×3 (10:58→21:25)
[2019-07-25] MEDS: CEFAZOLIN 1 GM/D5W 1 GM/50 ML BAG IVPB SCH (02:03)
[2019-07-25] MEDS: ACETAMINOPHEN/CAFFEINE/BUTALBITAL 1 TAB PO PRN ×4 (02:04→20:56)
--- NOTE | 2019-07-25 05:34 | PN ---
Post Progress Note - Subjective Subjective: Pt seen/evaluated and doing well. Denies MEHTA/RUQ pain or chnages in vision. Denies dizziness/SOB/CP/other complaints. OOB, voiding, ambulating, tolerating diet. Blood pressures have overall been normal with a few mild range outliers Type of Delivery: Vital Signs: Vital Signs Temperature 98.1 F 07/25/19 02:00 Pulse Rate 76 07/25/19 02:00 Respiratory Rate 18 07/25/19 02:00 Blood Pressure 120/78 07/25/19 02:00 O2 Sat by Pulse Oximetry (%) 98 07/24/19 01:00 Uterus: Yes: Fundus Firm, Non-tender Abdomen/GI: Yes: Abdomen soft, Tolerating PO Lochia: Yes: Rubra Lochia, amount: Small Extremities: Yes: Calves non-tender Perineum: Yes: Intact Activity: Ambulating - Labs Labs: CBC WBC 16.1 K/mm3 (4.0-10.0) H 07/24/19 01:10 RBC 3.96 M/mm3 (3.60-5.2) 07/24/19 01:10 Hgb 8.7 GM/dL (10.7-15.3) L 07/24/19 01:10 Hct 27.7 % (32.4-45.2) L D 07/24/19 01:10 MCV 69.8 fl (80-96) L 07/24/19 01:10 MCH 22.0 pg (25.7-33.7) L 07/24/19 01:10 MCHC 31.6 g/dl (32.0-36.0) L 07/24/19 01:10 RDW 15.2 % (11.6-15.6) 07/24/19 01:10 Plt Count 180 K/MM3 (134-434) 07/24/19 01:10 MPV 8.5 fl (7.5-11.1) 07/24/19 01:10 Absolute Neuts (auto) 14.5 K/mm3 (1.5-8.0) H 07/24/19 01:10 Neutrophils % 89.7 % (42.8-82.8) H 07/24/19 01:10 Lymphocytes % 5.4 % (8-40) L D 07/24/19 01:10 Monocytes % 4.9 % (3.8-10.2) 07/24/19 01:10 Eosinophils % 0.0 % (0-4.5) D 07/24/19 01:10 Basophils % 0.0 % (0-2.0) 07/24/19 01:10 Nucleated RBC % 0 % (0-0) 07/24/19 01:10 Hypochromia 1+ 07/24/19 01:10 Platelet Estimate Normal 07/24/19 01:10 Polychromasia 0 07/24/19 01:10 Poikilocytosis 0 07/24/19 01:10 Anisocytosis 2+ 07/24/19 01:10 Microcytosis 2+ 07/24/19 01:10 Macrocytosis 0 07/24/19 01:10 Retic Count 1.86 % (0.5-1.5) H 07/23/19 13:35 Haptoglobin 149 mg/dL (34-200) 07/23/19 13:35 Problem List - Problems (1) Gestational hypertension Code(s): O13.9 - GESTATIONAL HTN W/O SIGNIFICANT PROTEINURIA, UNSP TRIMESTER Qualifiers: Trimester: third trimester Qualified Code(s): O13.3 - Gestational [ -induced] hypertension without significant proteinuria, third trimester (2) Vaginal delivery Code(s): O80 - ENCOUNTER FOR FULL-TERM UNCOMPLICATED DELIVERY Assessment/Plan Pt feeling better afebrile - tmax 100.1 on 07/24 at 2 am, will discontinue ancef anemic, recheck CBC, continue PNVs and PO Iron routine care
[2019-07-25] MEDS: FERROUS SO4 325 MG TABLET (FP) PO SCH ×3 (07:30→17:05)
[2019-07-25 08:38] LABS: BASO % 0.3 % (0-2.0); EOS % 0.1 % (0-4.5); HEMATOCRIT 22.4 % (32.4-45.2); HEMOGLOBIN 7.1 GM/dL (10.7-15.3); LYMPH % 22.2 % (8-40); MCH 22.4 pg (25.7-33.7); MCHC 31.5 g/dl (32.0-36.0); MEAN PLT VOLUME 8.5 fl (7.5-11.1); MONO % 5.3 % (3.8-10.2); NEUT % 72.1 % (42.8-82.8); PLATELET COUNT 166 K/MM3 (134-434); RBC 3.16 M/mm3 (3.60-5.2); RDW 15.5 % (11.6-15.6); WHITE BLOOD COUNT 11.2 K/mm3 (4.0-10.0)
[2019-07-25] MEDS: PRENATAL VITAMINS W/ FOLIC ACID TABLET (FP) PO SCH (09:49)
--- NOTE | 2019-07-25 14:49 | PN ---
Progress Note (short form) - Note Progress Note: Anesthesia Check Patient complaining of headache post dural puncture during a labor epidural catheter placement. She was trailed of Fioricet, which helped reduce the pain to a tolerable level of 3/10. Patient will be discharged this afternoon, advised patient to come back to emergency room if the pain returned and wasnt relieved with oral analgesics.
--- NOTE | 2019-07-25 18:54 | PN ---
Progress Note (short form) - Note Progress Note: Patient has post dural puncture headache so epidural blood patch done under sterile conditions at L3-4and had loss of resistance at 5cm.15 Ml lazarus o= patients own blood drawn from LACF injected though the epidural needle.The headache subsided.Advise 30-60 minute bed rest.
[2019-07-25] MEDS ORDERED: SENNOSIDES/DOCUSATE COMBO (SENNA PLUS) TABLET (UD) PO PRN (22:00)
[2019-07-26] MEDS: ACETAMINOPHEN/CAFFEINE/BUTALBITAL 1 TAB PO PRN (04:07)
[2019-07-26] MEDS: FERROUS SO4 325 MG TABLET (FP) PO SCH ×3 (07:45→19:03)
[2019-07-26 08:16] LABS: BASO % 0.4 % (0-2.0); EOS % 0.6 % (0-4.5); HEMATOCRIT 21.3 % (32.4-45.2); LYMPH % 20.1 % (8-40); MCH 22.5 pg (25.7-33.7); MEAN CELL VOLUME 70.2 fl (80-96); MEAN PLT VOLUME 8.3 fl (7.5-11.1); MONO % 4.3 % (3.8-10.2); NEUT % 74.6 % (42.8-82.8); PLATELET COUNT 212 K/MM3 (134-434); RBC 3.03 M/mm3 (3.60-5.2); RDW 15.6 % (11.6-15.6); WHITE BLOOD COUNT 12.6 K/mm3 (4.0-10.0)
[2019-07-26 08:24] LABS: HEMOGLOBIN 6.8 GM/dL (10.7-15.3)
--- NOTE | 2019-07-26 09:48 | PN ---
Post Progress Note - Subjective Subjective: Pt seen/evaluated. Feeling better s/p blood patch. Still slighly dizzy/weak, Hgb 6.8 this a.m. Type of Delivery: Vital Signs: Vital Signs Temperature 98.6 F 07/25/19 21:00 Pulse Rate 77 07/25/19 21:00 Respiratory Rate 18 07/25/19 21:00 Blood Pressure 126/69 07/25/19 21:00 O2 Sat by Pulse Oximetry (%) 98 07/24/19 01:00 Uterus: Yes: Fundus Firm Abdomen/GI: Yes: Abdomen soft. No: Tender Lochia: Yes: Rubra Lochia, amount: Small Extremities: Yes: Calves non-tender Perineum: Yes: Intact Activity: Ambulating - Labs Labs: CBC WBC 12.6 K/mm3 (4.0-10.0) H 07/26/19 07:27 RBC 3.03 M/mm3 (3.60-5.2) L 07/26/19 07:27 Hgb 6.8 GM/dL (10.7-15.3) L* 07/26/19 07:27 Hct 21.3 % (32.4-45.2) L 07/26/19 07:27 MCV 70.2 fl (80-96) L 07/26/19 07:27 MCH 22.5 pg (25.7-33.7) L 07/26/19 07:27 MCHC 32.0 g/dl (32.0-36.0) 07/26/19 07:27 RDW 15.6 % (11.6-15.6) 07/26/19 07:27 Plt Count 212 K/MM3 (134-434) D 07/26/19 07:27 MPV 8.3 fl (7.5-11.1) 07/26/19 07:27 Absolute Neuts (auto) 9.4 K/mm3 (1.5-8.0) H 07/26/19 07:27 Neutrophils % 74.6 % (42.8-82.8) 07/26/19 07:27 Lymphocytes % 20.1 % (8-40) 07/26/19 07:27 Monocytes % 4.3 % (3.8-10.2) 07/26/19 07:27 Eosinophils % 0.6 % (0-4.5) D 07/26/19 07:27 Basophils % 0.4 % (0-2.0) 07/26/19 07:27 Nucleated RBC % 0 % (0-0) 07/26/19 07:27 Hypochromia 1+ 07/24/19 01:10 Platelet Estimate Normal 07/24/19 01:10 Polychromasia 0 07/24/19 01:10 Poikilocytosis 0 07/24/19 01:10 Anisocytosis 2+ 07/24/19 01:10 Microcytosis 2+ 07/24/19 01:10 Macrocytosis 0 07/24/19 01:10 Retic Count 1.86 % (0.5-1.5) H 07/23/19 13:35 Haptoglobin 149 mg/dL (34-200) 07/23/19 13:35 Problem List - Problems (1) Gestational hypertension Code(s): O13.9 - GESTATIONAL HTN W/O SIGNIFICANT PROTEINURIA, UNSP TRIMESTER Qualifiers: Trimester: third trimester Qualified Code(s): O13.3 - Gestational [ -induced] hypertension without significant proteinuria, third trimester (2) Vaginal delivery Code(s): O80 - ENCOUNTER FOR FULL-TERM UNCOMPLICATED DELIVERY Assessment/Plan 24 y/o PPD#3 s/p normal , anemia, s/p blood patch for spinal headache regular diet PO pain meds plan for 2 units PRBC re evaluate for discharge after transfusion
[2019-07-26] MEDS: PRENATAL VITAMINS W/ FOLIC ACID TABLET (FP) PO SCH (10:00)
[2019-07-27 02:15] VITALS: BP 126/78; PULSE 84; TEMP 98.3
[2019-07-27] MEDS: FERROUS SO4 325 MG TABLET (FP) PO SCH ×2 (08:12→12:45)
[2019-07-27 09:05] LABS: BASO % 0.5 % (0-2.0); EOS % 1.3 % (0-4.5); HEMATOCRIT 31.2 % (32.4-45.2); HEMOGLOBIN 10.5 GM/dL (10.7-15.3); LYMPH % 18.2 % (8-40); MCH 24.5 pg (25.7-33.7); MCHC 33.6 g/dl (32.0-36.0); MEAN CELL VOLUME 73.1 fl (80-96); MEAN PLT VOLUME 7.9 fl (7.5-11.1); MONO % 4.9 % (3.8-10.2); NEUT % 75.1 % (42.8-82.8); PLATELET COUNT 245 K/MM3 (134-434); RBC 4.27 M/mm3 (3.60-5.2); RDW 16.9 % (11.6-15.6); WHITE BLOOD COUNT 12.6 K/mm3 (4.0-10.0)
[2019-07-27] MEDS: PRENATAL VITAMINS W/ FOLIC ACID TABLET (FP) PO SCH (10:57)
--- NOTE | 2019-07-27 13:06 | DS ---
Physical Exam-NEW GRAD RN Vital Signs: Vital Signs Temperature 98.3 F 07/26/19 21:00 Pulse Rate 84 07/26/19 21:00 Respiratory Rate 20 07/26/19 21:00 Blood Pressure 126/78 07/26/19 21:00 O2 Sat by Pulse Oximetry (%) 98 07/24/19 01:00 Constitutional: Yes: Well Nourished, No Distress Gastrointestinal: Yes: WNL, Soft ....Post : Yes: Uterus firm, Uterus non-tender Extremities: Yes: WNL Edema: No Neurological: Yes: WNL, Alert, Oriented Labs: CBC, BMP 07/27/19 08:20 07/23/19 13:35 Delivery - Delivery Vaginal Delivery: No Problems (Delivered with Pebbles Nuchal cord x 1) Type of Anesthesia: Epidural Episiotomy/Laceration: None EBL (cc): 350 Delivery, Single - Stages of Labor Date 1st Stage Initiatied: 07/23/19 Time 1st Stage Initiated: 13:30 Date 2nd Stage Initiated: 07/23/19 Time 2nd Stage Initiated: 23:10 Date of Delivery: 07/23/19 Time of Delivery: 23:38 Time Placenta Delivered: 23:40 Placenta: Yes: Spontaneous - Condition of Infant Gender: Female Weight: 6 lb 15 oz Position: OA Total Hours ROM (Hrs/Mins): 3H2M - 1 Minute Total Score: 9 5 Minutes Total Score: 9 - [place] Feeding Plan Initial Plan: Elected not to breastfeed exclusively throughout hospitalization Discharge Summary Reason For Visit: INDUCTION OF LABOR Current Active Problems Dizziness (Acute) Gestational hypertension (Acute) Vaginal delivery (Acute) - Instructions Referrals: Dali Mclaughlin MD [Staff Physician] - - Home Medications Comprehensive Discharge Medication List: Ambulatory Orders Vit No.129/Iron/Folic [ One Daily Tablet] 1 tab PO DAILY Ferrous Sulfate [Feosol] 325 mg PO TID 07/23/19 Ibuprofen [Motrin -] 600 mg PO QID #28 tablet 07/25/19
== END 2019-07-27 13:45 | disposition home or self-care (01) | DRG 560 ==
LOC: JDEL 11:00 → JLDR 12:15 → J3W 07-24 02:45
PROVIDERS: ADMIT Obstetrics & Gynecology; ATTEND Obstetrics & Gynecology
PROC: 10E0XZZ Delivery of Products of Conception, External Approach (ICD-10-PCS; principal; 2019-07-23)
PROC: 3E0R3GC Introduction of Other Therapeutic Substance into Spinal Canal, Percutaneous Approach (ICD-10-PCS; 2019-07-25)
PROC: 30233N1 Transfusion of Nonautologous Red Blood Cells into Peripheral Vein, Percutaneous Approach (ICD-10-PCS; 2019-07-26)
DX: O13.3 Gestational [pregnancy-induced] hypertension without significant proteinuria, third trimester (principal); O99.02 Anemia complicating childbirth; O29.43 Spinal and epidural anesthesia induced headache during pregnancy, third trimester; Z3A.40 40 weeks gestation of pregnancy; O26.893 Other specified pregnancy related conditions, third trimester; R42 Dizziness and giddiness; Z37.0 Single live birth
CPT/HCPCS: 36415; 36430; 36511; 36600; 59409; 80048; 81003; 82803; 82977; 83010; 84450; 84460; 84550; 85025; 85032; 85044; 85610; 85730; 86593; 86850; 86900; 86901; 86922; P9038; P9058